=== PATIENT | female | born 1950 | race Caucasian/White ===

== ENCOUNTER 2016-04-08 09:07 | Outpatient (CLI) | payer OTHER | END 2016-04-08 09:08 | disposition home or self-care (01) | LOC: BURLAB 09:07 | PROVIDERS: ATTEND Family Medicine | DX: Z01.812 Encounter for preprocedural laboratory examination (principal) | CPT/HCPCS: 36415; 82565 ==

== ENCOUNTER 2016-04-11 15:27 | Outpatient (CLI) | payer OTHER ==
--- NOTE | 2016-04-12 08:18 | MRI ---
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 COMPARISON: None. FINDINGS: No free fluid is evident. No enlarged lymph nodes are noted. There are small fibroids within the u terus. One of the largest is seen within the intramural portion of the posterior fundus measuring 1 .6 cm. There is additional 7 and 5 mm fibroids seen within the body. A 5 mm fibroid is seen within the submucosal location on image 23 of the sagittal series. There are scattered diverticula involving the colon without evidence of active diverticulitis. No d efinite sacral neural foraminal narrowing is noted. The visualized pelvic girdle musculature appears within normal limits. There is mild tendinosis of the gluteus minimus tendons bilaterally. No trochanteric or iliopsoas bursitis is evident. No bone marrow signal is grossly evident. IMPRESSION: 1. No tumor demonstrated within the pelvis. 2. No sacral neural foraminal narrowing is grossly evident. 3. Mild gluteus minimus tendinosis bilaterally. 4. Fibroid uterus. 5. Colonic diverticulosis. POS: PAUL
== END 2016-04-11 15:28 | disposition home or self-care (01) ==
LOC: BURMRI 15:27
PROVIDERS: ATTEND Family Medicine
DX: M53.3 Sacrococcygeal disorders, not elsewhere classified (principal); D36.10 Benign neoplasm of peripheral nerves and autonomic nervous system, unspecified; D25.9 Leiomyoma of uterus, unspecified; K57.30 Diverticulosis of large intestine without perforation or abscess without bleeding
CPT/HCPCS: 72197

== ENCOUNTER 2021-07-28 16:58 | Emergency (ER) | payer MEDICARE | END 2021-07-28 17:47 | disposition home or self-care (01) | LOC: BURERS 16:58 | DX: U07.1 COVID-19 (principal); E03.9 Hypothyroidism, unspecified; E78.2 Mixed hyperlipidemia | CPT/HCPCS: 99283 ==

== ENCOUNTER 2023-09-14 16:38 | Emergency (ER) | payer MEDICARE ==
[2023-09-14] MEDS ORDERED: Boostrix 0.5 ML (Tdap) VIAL (>/=7 yrs of age) ONE (17:20)
== END 2023-09-14 17:30 | disposition home or self-care (01) ==
LOC: BURERS 16:38
DX: S61.412A Laceration without foreign body of left hand, initial encounter (principal); E78.00 Pure hypercholesterolemia, unspecified; W54.8XXA Other contact with dog, initial encounter; Z23 Encounter for immunization; Z79.899 Other long term (current) drug therapy
CPT/HCPCS: 12002; 90471; 90715

== ENCOUNTER 2023-12-14 17:46 | Emergency (ER) | payer MEDICARE ==
[~2023-12-14 17:46] MED LIST: Iopamidol 370 76% 100 ML VIAL ONE
[2023-12-14] MEDS ORDERED: Ondansetron PF 4 MG/2 ML Vial ONE (18:12)
[2023-12-14 18:17] LABS: #Basophils 0.1 thou/uL (0.0-0.2); #Eosinophils 0.1 thou/uL (0.0-0.7); #Lymphocytes 1.9 thou/uL (1.20-3.40); #Monocytes 0.6 thou/uL (0.11-0.59); #Neutrophils 4.8 thou/uL (1.40-6.50); %Basophils 1.1 % (0.0-1.0); %Eosinophils 1.3 % (0.0-10.0); %Lymphocytes 24.8 % (21.0-51.0); %Monocytes 8.3 % (0.0-10.0); %Neutrophils 64.5 % (42.0-75.0); Hematocrit 42.7 % (36.0-47.0); Hemoglobin 14.2 g/dL (12.0-16.0); Mean Corpuscular HGB CONC 33.3 g/dL (32.0-36.0); Mean Corpuscular Volume 90.1 fl (78.0-98.0); Platelet Count 204 10x3/uL (130-400); RBC Distribution Width 11.6 % (11.5-14.5); Red Blood Cell (RBC) Count 4.74 mill/uL (4.20-5.40); White Blood Cell (WBC) Count 7.5 10x3/uL (4.8-10.8)
[2023-12-14 18:22] LABS: Bilirubin Negative (Negative); Blood, Urine Negative (Negative); Clarity Slightly Cloudy (Clear); Glucose, Urine (Dipstick) Negative (Negative); Ketone, Urine 15 mg/dL (Negative); Leukocyte Small (Negative); Nitrite Negative (Negative); Protein, Urine (Dipstick) Negative (Neg-Trace); Specific Gravity, Urine 1.025 (1.005-1.030); pH, Urine 6.5 (5.0-9.0)
[2023-12-14 18:28] LABS: RBC/HPF 0-3 HPF (0-3); Squamous Epithelial 21-50 HPF (0-3)
[2023-12-14 18:30] LABS: CAUTI Indications for Culture Alt mental st,lethar; Yeast-Budding Rare HPF (None Seen)
[2023-12-14 18:31] LABS: Bacteria/HPF 1+ HPF (None Seen)
[2023-12-14 18:32] LABS: Urine Culture Reflex Yes Yes
[2023-12-14 18:36] LABS: ALT (SGPT) 24 U/L (8-55); AST (SGOT) 17 U/L (5-34); Albumin 3.9 g/dL (3.4-4.8); Alkaline Phosphatase 79 U/L (40-110); Anion Gap 13 mmol/L (10-20); BUN (Urea Nitrogen) 16 mg/dL (9.8-20.1); Bilirubin, Total 0.7 mg/dL (0.2-1.2); Calc. Creatinine Clearance 0 mL/min (70-130); Calcium 9.6 mg/dL (7.8-10.44); Carbon Dioxide 26 mmol/L (23-31); Chloride 104 mmol/L (98-107); Estimated GFR 56; Globulin 3.3 g/dL (2.4-3.5); Glucose 94 mg/dL (83-110); Lipase 31 U/L (8-78); Potassium 3.7 mmol/L (3.5-5.1); Protein, Total 7.2 g/dL (5.8-8.1); Sodium 139 mmol/L (136-145)
== END 2023-12-14 20:06 | disposition home or self-care (01) ==
LOC: BURERS 17:46
DX: K57.92 Diverticulitis of intestine, part unspecified, without perforation or abscess without bleeding (principal); E86.0 Dehydration
CPT/HCPCS: 74177; 80053; 81001; 83605; 83690; 85025; 87086; J2405; 96361; 96374; Q9967

== ENCOUNTER 2024-12-14 16:47 | Emergency (ER) | payer MEDICARE ==
[2024-12-14] MEDS ORDERED: Ondansetron PF 4 MG/2 ML Vial ONE (17:16)
[2024-12-14 17:22] LABS: Glucose, Urine (Dipstick) Negative (Negative); Leukocyte Negative (Negative); Protein, Urine (Dipstick) Negative (Neg-Trace); Specific Gravity, Urine 1.015 (1.005-1.030)
[2024-12-14 17:30] LABS: Bacteria/HPF None Seen HPF (None Seen); CAUTI Indications for Culture Pelvic or flank pain; RBC/HPF None Seen HPF (0-3); WBC/HPF None Seen HPF (0-3)
[2024-12-14 17:31] LABS: Urine Culture Reflex No No
[2024-12-14 17:34] LABS: Hematocrit 38.3 % (36.0-47.0); Hemoglobin 14.0 g/dL (12.0-16.0); Mean Corpuscular Hemoglobin 28.9 pg (27.0-31.0); Mean Corpuscular Volume 79.0 fl (78.0-98.0); Platelet Count 228 10x3/uL (130-400); Red Blood Cell (RBC) Count 4.85 mill/uL (4.20-5.40); White Blood Cell (WBC) Count 9.7 10x3/uL (4.8-10.8)
[2024-12-14 17:35] LABS: ALT (SGPT) 22 U/L (Less than 34); AST (SGOT) 23 U/L (11-34); Albumin 4.2 g/dL (3.1-4.5); Alkaline Phosphatase 75 U/L (40-110); Anion Gap 17 mmol/L (10-20); BUN (Urea Nitrogen) 17 mg/dL (9.8-20.1); Bilirubin, Total 0.5 mg/dL (0.3-1.2); Calc. Creatinine Clearance 0 mL/min (70-130); Calcium 9.2 mg/dL (7.8-10.44); Carbon Dioxide 23 mmol/L (23-31); Chloride 103 mmol/L (98-107); Globulin 3.0 g/dL (2.4-3.5); Glucose 100 mg/dL (83-110); Potassium 4.0 mmol/L (3.5-5.1); Sodium 139 mmol/L (136-145)
[2024-12-14 17:43] LABS: MDiff Complete? YES; Platelet Adequacy Comment Appears Adequate
[2024-12-14] MEDS ORDERED: Amoxicillin/Potassium Clav 875 MG TAB ONE (19:01)
== END 2024-12-14 19:12 | disposition home or self-care (01) ==
LOC: BURERS 16:47
DX: K57.32 Diverticulitis of large intestine without perforation or abscess without bleeding (principal); E78.00 Pure hypercholesterolemia, unspecified; Z79.899 Other long term (current) drug therapy
CPT/HCPCS: 74177; 80053; 81001; 83605; 85025; Q9967; 96374